=== PATIENT | female | born 1985 | race Caucasian/White ===

== ENCOUNTER 2016-11-26 10:09 | Emergency (ER) | payer OTHER ==
[~2016-11-26] VITALS: Ht 157.5 cm; Wt 92.0 kg
[~2016-11-26 10:09] MED LIST: Z.0.BCPILL PO
[2016-11-26 10:11] VITALS: BP 164/97; PULSE 92; RESP 20; TEMP 97.9; O2SAT 99
[2016-11-26] MEDS ORDERED: SODIUM CHLOR 0.9% 1000 ML INJ 1,000 ML IV ONE (11:19)
--- NOTE | 2016-11-26 11:23 | PD ---
HPI Chief Complaint: Cardiac Complaint Time Seen by Provider: 11:13 Travel History International Travel<30 days: No Contact w/Intl Traveler<30days: No Traveled to known affect area: No History of Present Illness HPI The patient is a 31-year-old female who presents emergency department for palpitations. The patient states she had a "crappy weekend" and was under a great deal of stress. The patient states she had palpitations yesterday and felt like her heart rate was racing, with a heart rate in the 120s, according to the patient. The patient states she was feeling weak and dizzy earlier today and her boss subsequent sent her to the emergency department for evaluation. The patient does have a history of mildly elevated heart rate and has an appointment with her primary physician, Dr. Whitehead, at the end of the month. The patient denies any history of arrhythmias, atrial fibrillation, or valvular disorders. She does complain of mild dizziness with her palpitations which are intermittent. She denies any chest pain or shortness of breath. The patient does drink coffee but only had a "few sips "this morning. She denies taking any [id number] decongestants, chronic alcohol abuse, or illicit drug use. The patient's last menstrual cycle was November 09, 2016, she denies . PFSH Past Medical History ?: Not Social History Alcohol Use: No Tobacco Use: Yes Substance Use: No Allergies-Medications (Allergen,Severity, Reaction): Coded Allergies: Amoxicillin (Verified Allergy, Mild, RASH, 11/26/16) Reported Meds & Prescriptions Reported Meds & Active Scripts Active Review of Systems Except as stated in HPI: all other systems reviewed are Neg Eyes: No: Blurred Vision HENT: Positive: Lightheadedness, No: Headaches Cardiovascular: Positive: Palpitations, Tachycardia, No: Chest Pain or Discomfort, Diaphoresis, Dyspnea on exertion Respiratory: No: Shortness of Breath Gastrointestinal: No: Nausea, Vomiting, Abdominal Pain Musculoskeletal: Positive: Weakness Neurologic: Positive: Weakness, Dizziness Physical Exam Narrative GENERAL: Awake, alert, pleasant 31-year-old female who appears her stated age and is in no acute respiratory distress. SKIN: Focused skin assessment warm/dry. HEAD: Atraumatic. Normocephalic. EYES: No injection or drainage. ENT: No nasal bleeding or discharge. Mucous membranes pink and moist. NECK: Trachea midline. No JVD. CARDIOVASCULAR: Regular rate and rhythm. No murmur appreciated. RESPIRATORY: No accessory muscle use. Clear to auscultation. Breath sounds equal bilaterally. GASTROINTESTINAL: Abdomen soft, non-tender, nondistended. No rebound tenderness. MUSCULOSKELETAL: No obvious deformities. No clubbing. No cyanosis. No edema. NEUROLOGICAL: Awake and alert. No obvious cranial nerve deficits. Motor grossly within normal limits. Normal speech. PSYCHIATRIC: Appropriate mood and affect; insight and judgment normal. Data Data Last Documented VS Vital Signs Date Time Temp Pulse Resp B/P Pulse Ox O2 Delivery O2 Flow Rate FiO2 11/26/16 12:22 84 18 128/78 100 Room Air 11/26/16 10:11 97.9 Orders Electrocardiogram (11/26/16 10:36) Complete Blood Count With Diff (11/26/16 11:19) Comprehensive Metabolic Panel (11/26/16 11:19) Magnesium (Mg) (11/26/16 11:19) Ckmb (Isoenzyme) Profile (11/26/16 11:19) Troponin I (11/26/16 11:19) Ecg Monitoring (11/26/16 11:19) Iv Access Insert/Monitor (11/26/16 11:19) Oximetry (11/26/16 11:19) Sodium Chloride 0.9% Flush (Ns Flush) (11/26/16 11:30) Sodium Chlor 0.9% 1000 Ml Inj (Ns 1000 M (11/26/16 11:19) Orthostatic Vital Signs (11/26/16 11:19) CKMB (11/26/16 11:24) CKMB% (11/26/16 11:24) Thyroid Stimulating Hormone (11/26/16 12:21) Labs Laboratory Tests Test 11/26/16 11:24 White Blood Count 12.9 TH/MM3 Red Blood Count 4.72 MIL/MM3 Hemoglobin 14.0 GM/DL Hematocrit 43.0 % Mean Corpuscular Volume 91.2 FL Mean Corpuscular Hemoglobin 29.7 PG Mean Corpuscular Hemoglobin 32.6 % Concent Red Cell Distribution Width 12.9 % Platelet Count 257 TH/MM3 Mean Platelet Volume 9.6 FL Neutrophils (%) (Auto) 69.5 % Lymphocytes (%) (Auto) 22.1 % Monocytes (%) (Auto) 7.3 % Eosinophils (%) (Auto) 0.6 % Basophils (%) (Auto) 0.5 % Neutrophils # (Auto) 8.9 TH/MM3 Lymphocytes # (Auto) 2.8 TH/MM3 Monocytes # (Auto) 0.9 TH/MM3 Eosinophils # (Auto) 0.1 TH/MM3 Basophils # (Auto) 0.1 TH/MM3 CBC Comment DIFF FINAL Differential Comment Sodium Level 138 MEQ/L Potassium Level 4.4 MEQ/L Chloride Level 104 MEQ/L Carbon Dioxide Level 26.1 MEQ/L Anion Gap 8 MEQ/L Blood Urea Nitrogen 7 MG/DL Creatinine 0.70 MG/DL Estimat Glomerular Filtration 97 ML/MIN Rate Random Glucose 97 MG/DL Calcium Level 9.6 MG/DL Magnesium Level 2.1 MG/DL Total Bilirubin 0.6 MG/DL Aspartate Amino Transf 48 U/L (AST/SGOT) Alanine Aminotransferase 42 U/L (ALT/SGPT) Alkaline Phosphatase 93 U/L Total Creatine Kinase 108 U/L Creatine Kinase MB LESS THAN 0.5 NG/ML Troponin I LESS THAN 0.02 NG/ML Total Protein 7.3 GM/DL Albumin 4.2 GM/DL Thyroid Stimulating Hormone 1.170 uIU/ML [address] [place] [address] Medical Decision Making Medical Screen Exam Complete: Yes Emergency Medical Condition: Yes Medical Record Reviewed: Yes Interpretation(s) EKG reveals normal sinus rhythm with a rate of 79. No ischemic changes or ectopy noted. No evidence of WPW or Brugada syndrome. Laboratory Tests Test 11/26/16 11:24 White Blood Count 12.9 TH/MM3 Red Blood Count 4.72 MIL/MM3 Hemoglobin 14.0 GM/DL Hematocrit 43.0 % Mean Corpuscular Volume 91.2 FL Mean Corpuscular Hemoglobin 29.7 PG Mean Corpuscular Hemoglobin 32.6 % Concent Red Cell Distribution Width 12.9 % Platelet Count 257 TH/MM3 Mean Platelet Volume 9.6 FL Neutrophils (%) (Auto) 69.5 % Lymphocytes (%) (Auto) 22.1 % Monocytes (%) (Auto) 7.3 % Eosinophils (%) (Auto) 0.6 % Basophils (%) (Auto) 0.5 % Neutrophils # (Auto) 8.9 TH/MM3 Lymphocytes # (Auto) 2.8 TH/MM3 Monocytes # (Auto) 0.9 TH/MM3 Eosinophils # (Auto) 0.1 TH/MM3 Basophils # (Auto) 0.1 TH/MM3 CBC Comment DIFF FINAL Differential Comment Sodium Level 138 MEQ/L Potassium Level 4.4 MEQ/L Chloride Level 104 MEQ/L Carbon Dioxide Level 26.1 MEQ/L Anion Gap 8 MEQ/L Blood Urea Nitrogen 7 MG/DL Creatinine 0.70 MG/DL Estimat Glomerular Filtration 97 ML/MIN Rate Random Glucose 97 MG/DL Calcium Level 9.6 MG/DL Magnesium Level 2.1 MG/DL Total Bilirubin 0.6 MG/DL Aspartate Amino Transf 48 U/L (AST/SGOT) Alanine Aminotransferase 42 U/L (ALT/SGPT) Alkaline Phosphatase 93 U/L Total Creatine Kinase 108 U/L Creatine Kinase MB LESS THAN 0.5 NG/ML Troponin I LESS THAN 0.02 NG/ML Total Protein 7.3 GM/DL Albumin 4.2 GM/DL Thyroid Stimulating Hormone 1.170 uIU/ML 3rd Gen Differential Diagnosis Differential diagnosis includes arrhythmia, palpitations, electrolyte abnormality, caffeine ingestion, somatization, stress reaction, valvular disorder, symptomatic anemia. Narrative Course IV was established, labs are drawn and sent, and the patient was placed on cardiac telemetry monitoring and continuous pulse oximetry monitoring. EKG was ordered and interpreted. Orthostatic vital signs were obtained. The patient was administered 1 L of IV fluids and monitored on cardiac telemetry monitoring. White count was minimally elevated at 12.9. Potassium was 4.4 with slight hemolysis. TSH is unremarkable. Cardiac telemetry monitoring reveals normal sinus rhythm with no obvious arrhythmias. The patient is stable for outpatient follow-up with her primary physician. The patient may benefit from Holter monitor, event monitor, and/or echocardiogram. She is advised to follow-up with her primary physician and cardiology if symptoms persist. Diagnosis Primary Impression: Palpitations Patient Instructions: General Instructions Additional Instructions: Please provide a patient a copy of her labs and EKG at discharge. Follow-up with her primary physician. You may benefit from outpatient event monitor, Holter monitor, and/or echocardiogram. Med/Other Pt SpecificInfo: No Change to Meds Disposition: 01 DISCHARGE HOME Condition: Stable Ramy De La Torre MD November 26, 2016 11:23
[2016-11-26 11:25] VITALS: BP 127/62; RESP 18; O2SAT 99
[2016-11-26 11:27] VITALS: BP_SYST 123; BP_SYST 124; BP_DIAS 78; BP_DIAS 81; RESP 18
[2016-11-26] MEDS ORDERED: SODIUM CHLORIDE 0.9% FLUSH 10 ML FLUSH IVF PRN (11:30)
[2016-11-26 11:47] LABS: AUTOMATED NEUTROPHIL # 8.9 TH/MM3 (1.8-7.7); BASOPHIL # 0.1 TH/MM3 (0-0.2); BASOPHIL % 0.5 % (0.0-2.0); EOSINOPHIL # 0.1 TH/MM3 (0-0.4); EOSINOPHIL % 0.6 % (0.0-4.0); HEMO FLAGS DIFF FINAL; LYMPH % 22.1 % (9.0-44.0); LYMPHOCYTE # 2.8 TH/MM3 (1.0-4.8); MEAN CELL VOLUME 91.2 FL (80.0-100.0); MEAN CORPUSCULAR HEMOGLOBIN 29.7 PG (27.0-34.0); MEAN CORPUSCULAR HGB CONC 32.6 % (32.0-36.0); MONO % 7.3 % (0.0-8.0); NEUT % 69.5 % (16.0-70.0); PLATELET COUNT 257 TH/MM3 (150-450); RED BLOOD COUNT 4.72 MIL/MM3 (4.00-5.30); RED CELL DISTRIBUTION WIDTH 12.9 % (11.6-17.2); WHITE BLOOD COUNT 12.9 TH/MM3 (4.0-11.0)
[2016-11-26 12:06] LABS: ALKALINE PHOSPHATASE 93 U/L (45-117); ALT (GPT) 42 U/L (10-53); ANION GAP 8 MEQ/L (5-15); AST (GOT) 48 U/L (15-37); BICARBONATE 26.1 MEQ/L (21.0-32.0); BLOOD UREA NITROGEN 7 MG/DL (7-18); CHLORIDE 104 MEQ/L (98-107); CREATINE KINASE 108 U/L (26-192); GLOMERULAR FILTRATION RATE 97 ML/MIN (>89); MAGNESIUM 2.1 MG/DL (1.5-2.5); SODIUM (NA) 138 MEQ/L (136-145); TOTAL BILIRUBIN ADULT 0.6 MG/DL (0.2-1.0)
[2016-11-26 12:19] LABS: CKMB LESS THAN 0.5 NG/ML (0.5-3.6)
[2016-11-26 12:22] VITALS: BP 128/78; PULSE 84; RESP 18; O2SAT 100
[2016-11-26 12:43] LABS: POTASSIUM 4.4 MEQ/L (3.5-5.1)
--- NOTE | 2016-11-27 13:40 | EKG ---
Date Performed: 11/26/2016 Time Performed: 10:43:33 PTAGE: 31 years EKG: Sinus rhythm BORDERLINE RIGHT AXIS DEVIATION BORDERLINE ECG NO PREVIOUS TRACING DOCTOR: Ramiro Nelson Interpretating Date/Time 11/27/2016 13:39:34
== END 2016-11-26 13:32 | disposition home or self-care (01) ==
LOC: NEPD 10:09
DX: R00.2 Palpitations (principal); Z72.0 Tobacco use
CPT/HCPCS: 80053; 82550; 82552; 83735; 84443; 84484; 85025; 93005; 96360; 96361; 99285; J7030